=== PATIENT | male | born 1990 | race Caucasian/White ===

== ENCOUNTER 2016-11-22 19:44 | Emergency (ER) | payer OTHER ==
[2016-11-22 19:55] VITALS: RESP 18
--- NOTE | 2016-11-22 20:09 | EDPHY ---
H & P Time Seen by Provider: 11/22/16 20:01 HPI/ROS: CHIEF COMPLAINT: Laceration from a broken glass HISTORY OF PRESENT ILLNESS: 26-year-old [id number] male was at work handling a glass jar with a glass jar broke and sustained a laceration to his right wrist volar aspect base of the thumb, see image. Paresthesia. No sensory motor deficit. No foreign body sensation. Course shortly prior to arrival PHYSICAL EXAM (Prior to examination, patient consented to physical exam, hands were washed and my usual and customary physical exam procedures followed) 1) GENERAL: Well-developed, well-nourished, alert and oriented. Appears to be in no acute distress. 2) HEAD: Normocephalic 3) HEENT: sclera anicteric 4) LUNGS: Breathing comfortably. 5) SKIN: 1.5 cm well-demarcated laceration right wrist radial aspect. 6) MUSCULOSKELETAL: abduction abduction flexor extensor function intact no gross deficits. No definitive flexor laceration 7) NEUROLOGIC: Full sensation distally no deficits Smoking Status: Never smoked Constitutional: Initial Vital Signs Temperature (C) 36.5 C 11/22/16 19:52 Heart Rate 57 L 11/22/16 19:52 Respiratory Rate 18 11/22/16 19:52 Blood Pressure 135/71 H 11/22/16 19:52 O2 Sat (%) 97 11/22/16 19:52 O2 Delivery Mode Room Air Allergies/Adverse Reactions: No Known Allergies Allergy (Unverified 11/22/16 19:52) Home Medications: Medication Instructions Recorded Lizzeth 06/19/13 Ondansetron Odt [Zofran Odt 4 mg 4 mg PO Q4 #15 tab 06/19/13 (RX)] Cephalexin [Keflex] 500 mg PO TID 5 Days 11/22/16 ED Images - Extremities Hands Front Left/Right: 1 - Laceration MDM/Departure - MDM Diagnostics: Imaging Impressions Wrist X-Ray 11/22/16 20:06 Impression: There is no convincing evidence of a radiopaque foreign body, or acute osseous abnormality. Procedures: Procedure: Laceration repair. I explained the indications, risks and benefits for both laceration repair and anesthetic administration. Verbal consent was obtained from the patient . The laceration on the right wrist was anesthetized using 0.5% bupivicaine with epinephrine. After anesthetic administered the patient was observed for a period of time and had no apparent adverse effects. The wound was cleaned, prepped, draped in normal sterile fashion and explored to its base. No foreign body seen, no foreign bodies palpated. There were no deep structures involved. Possible tendon injury seen. The wound was repaired with 3 simple interrupted 5 O Prolene suture. The wound repair was simple. The procedure was performed by myself. Patient has been informed that scarring will occur, although efforts have been made to minimize this. Procedure: Splint A Velcro volar wrist was applied by ER metallographic technician. After application of the splint I returned and re-examined the patient. The splint was adequately immobilizing the joint and distal to the splint the patient's circulation and sensation were intact. Patient shows no signs of compartment syndrome. Was given orthopedic precautions. ED Course/Re-evaluation: No definitive flexor tendon injury seen however patient has been informed that this cannot be ruled out and I recommended he follow up with Hand surgery as well as his work comp provider. Started on prophylactic antibiotics. Usual and customary wound precautions and instructions provided. - Depart Disposition: Home, Routine, Self-Care Clinical Impression: Wrist laceration Qualifiers: Encounter type: initial encounter Laterality: right Qualified Code(s): S61.511A - Laceration without foreign body of right wrist, initial encounter Condition: Good Instructions: Laceration (ED) Additional Instructions: Return to the ER if you develop redness, swelling, discharge, warmth to the wound, red streaks going up your arm , or any other symptoms that concern you. Stand Alone Forms: Work Comp Follow Up Prescriptions: Cephalexin [Keflex] 500 mg PO TID 5 Days Referrals: Jaclyn Lino MD [Medical Doctor] - 1-2 days without fail
[2016-11-22 21:00] VITALS: BP 119/76; PULSE 64; TEMP 98.8; O2SAT 96
== END 2016-11-22 20:59 | disposition home or self-care (01) ==
PROC: 0HQDXZZ Repair Right Lower Arm Skin, External Approach (ICD-10-PCS; principal; 2016-11-22)
DX: S61.511A Laceration without foreign body of right wrist, initial encounter (principal); W25.XXXA Contact with sharp glass, initial encounter; Y92.69 Other specified industrial and construction area as the place of occurrence of the external cause; Y99.0 Civilian activity done for income or pay; Y93.89 Activity, other specified
CPT/HCPCS: L3908